=== PATIENT | male | born 2000 ===

== ENCOUNTER 2023-04-26 14:54 | Inpatient (IN) | payer OTHER, SELFPAY ==
[2023-04-26 16:45] VITALS: BP 113/77; PULSE 86; RESP 18; TEMP 36.5; O2SAT 96
[2023-04-26 18:53] VITALS: BMI 51.5
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
[2023-04-26] MEDS: traZODone HCL 100 MG TABLET PO (21:26)
[2023-04-26] MEDS: Acetaminophen 325 MG TABLET 650 MG PO (21:26)
[2023-04-26 21:35] LABS: Glucose, Whole Blood 101 mg/dL (60-115)
--- NOTE | 2023-04-27 00:05 | PC.NURSE ---
AT 2358 PT REPORTED TO SITTER THAT HE DID NOT WANT TO USE HIS CPAP TONIGHT. RN MADE RESPIRATORY CARE ASSISTANT AWARE.
[2023-04-27 08:00] VITALS: BP 107/53; PULSE 72; RESP 16; TEMP 36.2; O2SAT 92
[2023-04-27 08:50] LABS: Glucose, Whole Blood 101 mg/dL (60-115)
[2023-04-27] MEDS: buPROPion HCl XL 150 MG TAB.ER.24H PO (10:06)
[2023-04-27] MEDS: Nicotine Polacrilex 2 MG GUM 4 MG BUCCAL (11:30)
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
[2023-04-27 12:13] LABS: Glucose, Whole Blood 165 mg/dL (60-115)
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
[2023-04-27] MEDS: hydrOXYzine HCL 25 MG TABLET PO (15:04)
[2023-04-27] MEDS: OLANZapine 5 MG TABLET PO ×2 (15:04→20:05)
[2023-04-27 18:00] VITALS: BP 125/58; PULSE 78; TEMP 36.6; O2SAT 96
[2023-04-27] MEDS: traZODone HCL 50 MG TABLET 150 MG PO (20:04)
[2023-04-27] MEDS: cloNIDine HCL 0.1 MG TABLET PO (20:04)
[2023-04-28 08:29] LABS: Glucose, Whole Blood 118 mg/dL (60-115)
[2023-04-28] MEDS: buPROPion HCl XL 150 MG TAB.ER.24H PO (11:53)
[2023-04-28] MEDS: Levothyroxine Sodium 50 MCG TABLET PO (11:53)
[2023-04-28] MEDS: Sertraline HCL 100 MG TABLET PO (11:53)
[2023-04-28] MEDS: lamoTRIgine 25 MG TABLET 150 MG PO (11:53)
[2023-04-28] MEDS: OLANZapine 5 MG TABLET PO ×2 (11:53→21:25)
[2023-04-28 12:32] LABS: Glucose, Whole Blood 112 mg/dL (60-115)
[2023-04-28 17:14] LABS: Glucose, Whole Blood 91 mg/dL (60-115)
[2023-04-28 18:00] VITALS: BP 129/81; PULSE 91; RESP 16; TEMP 36.7; O2SAT 96
[2023-04-28] MEDS: hydrOXYzine HCL 25 MG TABLET PO (18:48)
[2023-04-28] MEDS: cloNIDine HCL 0.1 MG TABLET PO ×2 (18:48→21:26)
[2023-04-28] MEDS: Nicotine Polacrilex 2 MG GUM 4 MG BUCCAL (18:50)
[2023-04-28] MEDS: Acetaminophen 325 MG TABLET 650 MG PO (21:24)
[2023-04-28] MEDS: traZODone HCL 50 MG TABLET 150 MG PO (21:25)
[2023-04-28 21:31] LABS: Glucose, Whole Blood 139 mg/dL (60-115)
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
[2023-04-29 06:00] VITALS: BP 104/65; PULSE 60; TEMP 36.5; O2SAT 95
[2023-04-29] MEDS: buPROPion HCl XL 150 MG TAB.ER.24H PO (08:28)
[2023-04-29] MEDS: Sertraline HCL 100 MG TABLET PO (08:28)
[2023-04-29] MEDS: OLANZapine 5 MG TABLET PO ×4 (08:28→21:06)
[2023-04-29] MEDS: Levothyroxine Sodium 50 MCG TABLET PO (08:28)
[2023-04-29] MEDS: lamoTRIgine 25 MG TABLET 150 MG PO (08:28)
[2023-04-29 09:00] LABS: Glucose, Whole Blood 112 mg/dL (60-115)
[2023-04-29] MEDS: Nicotine Polacrilex 2 MG GUM 4 MG BUCCAL ×2 (11:36→14:15)
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
[2023-04-29] MEDS: cloNIDine HCL 0.1 MG TABLET PO ×3 (14:15→21:06)
[2023-04-29] MEDS: hydrOXYzine HCL 25 MG TABLET PO (14:15)
[2023-04-29 17:41] LABS: Glucose, Whole Blood 154 mg/dL (60-115)
[2023-04-29 20:16] LABS: Glucose, Whole Blood 146 mg/dL (60-115)
[2023-04-29 20:40] VITALS: BP 136/88; PULSE 72; RESP 16; TEMP 36.4; O2SAT 94
[2023-04-29] MEDS: traZODone HCL 50 MG TABLET 150 MG PO (21:06)
[2023-04-30 08:33] LABS: Glucose, Whole Blood 120 mg/dL (60-115)
[2023-04-30 08:41] VITALS: BP 108/60; PULSE 60; RESP 16; TEMP 37; O2SAT 96
[2023-04-30] MEDS: lamoTRIgine 25 MG TABLET 150 MG PO (09:00)
[2023-04-30] MEDS: Lidocaine 4 % Patch ADH..PATCH 1 PATCH TRANSDERMA (09:00)
[2023-04-30] MEDS: Sertraline HCL 100 MG TABLET PO (09:01)
[2023-04-30] MEDS: OLANZapine 5 MG TABLET PO ×3 (09:01→21:12)
[2023-04-30] MEDS: buPROPion HCl XL 150 MG TAB.ER.24H PO (09:01)
[2023-04-30] MEDS: Levothyroxine Sodium 50 MCG TABLET PO (09:01)
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
[2023-04-30 11:04] VITALS: BP 106/60; PULSE 75
[2023-04-30] MEDS: cloNIDine HCL 0.1 MG TABLET PO ×2 (11:07→21:13)
[2023-04-30] MEDS: Nicotine Polacrilex 2 MG GUM 4 MG BUCCAL (12:19)
[2023-04-30] MEDS: hydrOXYzine HCL 25 MG TABLET PO (12:19)
[2023-04-30] MEDS: traZODone HCL 50 MG TABLET 150 MG PO (21:13)
[2023-04-30 21:25] VITALS: BP 108/59; PULSE 69; TEMP 37.4; O2SAT 94
[2023-05-01 08:30] VITALS: BP 97/64; PULSE 61; RESP 16; TEMP 36.4; O2SAT 93
[2023-05-01 08:42] LABS: Glucose, Whole Blood 123 mg/dL (60-115)
[2023-05-01] MEDS: lamoTRIgine 25 MG TABLET 150 MG PO (10:01)
[2023-05-01] MEDS: Sertraline HCL 100 MG TABLET PO (10:02)
[2023-05-01] MEDS: buPROPion HCl XL 150 MG TAB.ER.24H PO (10:02)
[2023-05-01] MEDS: OLANZapine 5 MG TABLET PO ×2 (10:02→21:51)
[2023-05-01] MEDS: Levothyroxine Sodium 50 MCG TABLET PO (10:02)
[2023-05-01] MEDS: Nicotine Polacrilex 2 MG GUM 4 MG BUCCAL ×2 (10:05→18:34)
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
[2023-05-01 18:00] VITALS: BP 131/76; PULSE 82; TEMP 36.4; O2SAT 96
[2023-05-01 21:45] VITALS: BP 128/63; PULSE 65
[2023-05-01] MEDS: cloNIDine HCL 0.1 MG TABLET PO (21:51)
[2023-05-01] MEDS: traZODone HCL 50 MG TABLET 150 MG PO (21:51)
[2023-05-01 22:16] LABS: Glucose, Whole Blood 113 mg/dL (60-115)
[2023-05-01 23:56] VITALS: PULSE 65; O2SAT 97
[2023-05-02] MEDS: cloNIDine HCL 0.1 MG TABLET PO ×2 (09:05→20:03)
[2023-05-02] MEDS: buPROPion HCl XL 150 MG TAB.ER.24H PO (09:05)
[2023-05-02] MEDS: Levothyroxine Sodium 50 MCG TABLET PO (09:05)
[2023-05-02] MEDS: Sertraline HCL 100 MG TABLET PO (09:05)
[2023-05-02] MEDS: OLANZapine 5 MG TABLET PO ×2 (09:05→20:03)
[2023-05-02] MEDS: lamoTRIgine 25 MG TABLET 150 MG PO (09:06)
[2023-05-02 09:26] VITALS: BP 122/67; PULSE 71; TEMP 36.4; O2SAT 96
[2023-05-02] MEDS: Nicotine Polacrilex 2 MG GUM 4 MG BUCCAL ×2 (10:57→20:04)
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
--- NOTE | 2023-05-02 16:00 | PC.NURSE ---
Pt submitted a Three Day Notice on Sunday05/02/2023, up on Sunday05/08/2022.
[2023-05-02 19:55] VITALS: BP 123/77; PULSE 75; TEMP 36.6
[2023-05-02] MEDS: traZODone HCL 50 MG TABLET 150 MG PO (20:02)
--- NOTE | 2023-05-02 23:57 | PC.NURSE ---
pt refused his cpap
[2023-05-03 07:00] VITALS: BMI 52.1
[2023-05-03 08:30] VITALS: BP 111/69; PULSE 57; RESP 18; TEMP 36.4; O2SAT 94
[2023-05-03] MEDS: OLANZapine 5 MG TABLET PO (08:49)
[2023-05-03] MEDS: lamoTRIgine 25 MG TABLET 150 MG PO (08:49)
[2023-05-03] MEDS: Levothyroxine Sodium 50 MCG TABLET PO (08:49)
[2023-05-03] MEDS: buPROPion HCl XL 150 MG TAB.ER.24H PO (08:49)
[2023-05-03] MEDS: cloNIDine HCL 0.1 MG TABLET PO (08:49)
[2023-05-03] MEDS: Sertraline HCL 100 MG TABLET PO (08:49)
[2023-05-03] MEDS: Lidocaine 4 % Patch ADH..PATCH 1 PATCH TRANSDERMA (08:55)
[2023-05-03] MEDS: Nicotine Polacrilex 2 MG GUM 4 MG BUCCAL ×3 (10:58→15:31)
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
== END 2023-05-03 16:00 | disposition home or self-care (01) | DRG 751 ==
PROVIDERS: Admitting Provider Psychiatry & Neurology Psychiatry; Visit Provider Psychiatry & Neurology Psychiatry
DX: F33.1 Major depressive disorder, recurrent, moderate (principal); R45.851 Suicidal ideations; Z68.43 Body mass index [BMI] 50.0-59.9, adult; F43.25 Adjustment disorder with mixed disturbance of emotions and conduct; F90.9 Attention-deficit hyperactivity disorder, unspecified type; E66.01 Morbid (severe) obesity due to excess calories; Z71.3 Dietary counseling and surveillance; E03.9 Hypothyroidism, unspecified; F17.210 Nicotine dependence, cigarettes, uncomplicated; F43.10 Post-traumatic stress disorder, unspecified; G47.33 Obstructive sleep apnea (adult) (pediatric); Q98.4 Klinefelter syndrome, unspecified; K59.09 Other constipation; Z71.6 Tobacco abuse counseling; Z79.890 Hormone replacement therapy; Z79.899 Other long term (current) drug therapy
CPT/HCPCS: 82947; 94660

== ENCOUNTER → 2023-04-26 14:54 | Outpatient (BNV) | payer OTHER, SELFPAY | PROVIDERS: Admitting Provider Psychiatry & Neurology Psychiatry; Visit Provider Psychiatry & Neurology Psychiatry | DX: F43.25 Adjustment disorder with mixed disturbance of emotions and conduct (principal); F43.11 Post-traumatic stress disorder, acute; G47.33 Obstructive sleep apnea (adult) (pediatric); E03.9 Hypothyroidism, unspecified; F33.1 Major depressive disorder, recurrent, moderate | CPT/HCPCS: 90792; 99231; 99232; 99499 ==

== ENCOUNTER → 2023-04-26 14:54 | Outpatient (BNV) | payer OTHER, SELFPAY | PROVIDERS: Admitting Provider Psychiatry & Neurology Psychiatry; Visit Provider Student in an Organized Health Care Education/Training Program | DX: Z02.2 Encounter for examination for admission to residential institution (principal) | CPT/HCPCS: 99429 ==

== ENCOUNTER → 2023-04-26 14:54 | Outpatient (BNV) | payer OTHER, SELFPAY | PROVIDERS: Admitting Provider Psychiatry & Neurology Psychiatry; Visit Provider Psychiatry & Neurology Psychiatry | DX: F43.25 Adjustment disorder with mixed disturbance of emotions and conduct (principal); F43.11 Post-traumatic stress disorder, acute; G47.33 Obstructive sleep apnea (adult) (pediatric); E03.9 Hypothyroidism, unspecified; F33.1 Major depressive disorder, recurrent, moderate | CPT/HCPCS: 99231; 99232 ==